=== PATIENT | male | born 1970 | race Caucasian/White ===

== ENCOUNTER 2021-05-06 14:08 | Outpatient (CLI) | payer OTHER, SELFPAY ==
--- NOTE | ~2021-05-06 | XR_ITS ---
EXAMINATION: [id number]_[id number] EXAM DATE: 05/06/2021 14:29 INDICATION: Right-sided neck pain. TECHNIQUE: Cervical spine frontal, lateral, and open-mouth odontoid projections. There is no prior study for comparison. FINDINGS: Mild loss of the C3-4 disc height. The vertebral body and disc heights are otherwise well maintained. The vertebral bodies are aligned in the AP dimension. Prevertebral soft tissue and pre-de ns space are within normal limits. Mild to moderate cervical facet and lower cervical uncovertebral joint arthropathy. Paraspinal soft tissue is unremarkable. IMPRESSION: Mild to moderate cervical arthropathy. Reviewed, dictated and finalized at location A.
== END 2021-05-06 14:09 | disposition home or self-care (01) ==
PROVIDERS: PCP Internal Medicine; Visit Provider Internal Medicine
DX: M54.2 Cervicalgia (principal)
CPT/HCPCS: 72040

== ENCOUNTER 2021-05-13 14:02 | Outpatient (RCR) | payer OTHER, SELFPAY ==
--- NOTE | 2021-05-13 16:37 | PTOPEVAL ---
Thank you for referring Crow Kumar to [facility].? The patient is scheduled to be seen for therapy? ____x/week for ___ weeks. Please review, sign, date and return this plan of care EVA. I agree with and certify that the following plan of care is medically necessary. Referring Physician Date Admitting Provider: Attending Provider: Kiet Galindo MD Referring Provider: *PT Outpatient Evaluation Start: 05/13/21 13:58 Freq: Status: Active Protocol: Document 05/13/21 14:00 J (Rec: 05/13/21 15:13 [facility] [id number]) Therapy Assessment Status Assessment Status Assessment Status Evaluation Evaluation Information Problem Diagnosis neck pain Onset 05/11/21 Additional Evaluation Detail Neck Disability Index 18% functional limitations Subjective Information Crow Kumar is a 51 year Query Text:As Reported By Patient/ old male who reports neck Family pain. Neck pain has existed for years, but experienced a flare up approx 2 weeks ago when resumed driving again after taking time off work. He reports that most of his pain occurs when driving for long periods of time (drives 2 hours/day 5days/week). Rotation causes pain to increase the most. Prednisone dose pack has helped. Uses TENS unit at home. Ergonomically positioned standing desk at work. Reports radicular symptoms down post R arm into dorsal hand. Used to play [employer] (strap hangs around neck) for 10+ hours at a time. Pain increases when performing shoulder flex >160 degrees while looking up. 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
--- NOTE | 2021-06-10 15:49 | PTOPEVAL ---
Thank you for referring Crow Kumar to [facility].? The patient is scheduled to be seen for therapy? ____x/week for ___ weeks. Please review, sign, date and return this plan of care EVA. I agree with and certify that the following plan of care is medically necessary. Referring Physician Date Admitting Provider: Attending Provider: Kiet Galindo MD Referring Provider: *PT Outpatient Evaluation Start: 05/13/21 13:58 Freq: Status: Active Protocol: Document 06/10/21 15:00 J (Rec: 06/10/21 15:49 [facility] [id number]) Therapy Assessment Status Assessment Status Assessment Status Re-evaluation Evaluation Information Problem Diagnosis neck pain Onset 05/11/21 Additional Evaluation Detail ndi = 18% functionally declined Subjective Information patient reports he is Better Query Text:As Reported By Patient/ overall. he reports he kendrick Family not have as severe pain, but still at times will flare up with tightness in the neck. he reports the manual therapy and manipulations have hepled tremendously. he has a new order to continue skilled PT, and patient reports he would like to continue therapy to improve his mobility and function. he reports he has noticed improvement in ability to look over shoulders to look for other cars while driving. Pain Assessment Timing of Pain Assessment Timing of Pain Assessment Assessment Pain Scale Pain Scale Used Numeric (1 - 10) Self Report Pain Assessment Neck Reported Pain Level 1 Greatest Pain Intensity 3 Pain Score Pain Score 1: Self Report Interventions Used Interventions Used By Clinicians Electrical Stimulation, Exercise,Heat Cervical and Lumbar ROM Cervical ROM Cervical Flexion (0-60) 50 Query Text:Active in Degrees Cervical Extension (0-70) 55 Query Text:Active in Degrees Cervical Lateral Flexion Right (0-50) 45 Query Text:Active in Degrees Cervical Lateral Flexion Left (0-50) 45 Query Text:Active in Degrees Cervical Rotation Right (0-90) 60 Query Text:Active in Degrees Cervical Rotation Left (0-90) 55 Query Text:Active in Degrees Cervical ROM Comments mm guarding noted with passive mobi
== END 2021-06-24 17:09 | disposition home or self-care (01) ==
LOC: CHSPT 14:02
PROVIDERS: PCP Internal Medicine; Visit Provider Internal Medicine
DX: M54.2 Cervicalgia (principal)
CPT/HCPCS: 97014; 97110; 97140; 97161; G0283